=== PATIENT | male | born 1950 | race Asian ===

== ENCOUNTER 2023-10-26 14:34 | Emergency (ER) | payer OTHER ==
[2023-10-26 14:54] VITALS: BP 154/77; PULSE 75; RESP 16; TEMP 98; BMI 21.9
[2023-10-26] MEDS: SODIUM CHLORIDE 1,000 ML IV STA (15:58)
[2023-10-26] MEDS: ACETAMINOPHEN 1000 MG/100 ML BAG IVPB ONE (15:58)
[2023-10-26 16:03] LABS: HEMATOCRIT 42.8 % (35.4-49); HEMOGLOBIN 13.9 G/dL (11.7-16.9); MCH 30.5 pg (25.7-33.7); MCHC 32.5 g/dl (32.0-35.9); MEAN CELL VOLUME 93.8 fl (80-96); MEAN PLT VOLUME 9.3 fl (7.5-11.1); PLATELET COUNT 141.6 10^3/uL (134-434); RBC 4.56 10^6/uL (4.00-5.60); RDW 13.1 % (11.9-15.9); WHITE BLOOD COUNT 14.2 10^3/uL (4.0-10.8)
[2023-10-26 16:09] LABS: INR 1.07 (0.83-1.09); PROTHROMBIN TIME (PATIENT) 12.2 SEC (9.7-13.0)
[2023-10-26 16:15] LABS: BILIRUBIN,TOTAL 0.7 mg/dl (0.2-1); CALCIUM 9.4 mg/dl (8.5-10.1); CREATININE 0.8 mg/dl (0.6-1.3); POTASSIUM 4.1 mmol/L (3.5-5.1); TOT PROT 6.3 g/dl (6.4-8.2)
[2023-10-26 16:29] LABS: PLATELET ESTIMATE ADEQUATE
[2023-10-26] MEDS ORDERED: ACETAMINOPHEN 500 MG TABLET (FP) ONE (18:56)
[2023-10-26] MEDS: ACETAMINOPHEN 500 MG TABLET (FP) PO ONE (19:10)
== END 2023-10-26 19:16 | disposition home or self-care (01) ==
LOC: FER 14:34
PROC: 3E033NZ Introduction of Analgesics, Hypnotics, Sedatives into Peripheral Vein, Percutaneous Approach (ICD-10-PCS; principal; 2023-10-26)
PROC: 3E033GC Introduction of Other Therapeutic Substance into Peripheral Vein, Percutaneous Approach (ICD-10-PCS; 2023-10-26)
PROC: 3E0337Z Introduction of Electrolytic and Water Balance Substance into Peripheral Vein, Percutaneous Approach (ICD-10-PCS; 2023-10-26)
DX: M54.6 Pain in thoracic spine (principal); W10.8XXA Fall (on) (from) other stairs and steps, initial encounter; Y92.009 Unspecified place in unspecified non-institutional (private) residence as the place of occurrence of the external cause
CPT/HCPCS: 36415; 70450-TC; 70496-TC; 70498-TC; 71260-TC; 74177-TC; 80053; 81003; 82962; 85027; 85610; 99285-25; J0131; Q9967